=== PATIENT | male | born 1960 | race Caucasian/White ===

== ENCOUNTER 2017-10-28 13:55 | Inpatient (IN) | payer MEDICARE ==
[~2017-10-28] VITALS: Ht 165.1 cm; Wt 56.2 kg
[2017-10-28] MEDS ORDERED: MELA3TAB PO (14:25)
[2017-10-28] MEDS ORDERED: ACET-2154 PO (14:25)
[2017-10-28] MEDS ORDERED: HALO2TAB PO (14:25)
[2017-10-28] MEDS ORDERED: LORA-258 PO (14:25)
[2017-10-28] MEDS ORDERED: VALP250S3 PO (14:25)
[2017-10-28] MEDS ORDERED: MAGN400O6 PO (14:25)
[2017-10-28] MEDS ORDERED: TRAM50TA2 PO (14:25)
[2017-10-28] MEDS ORDERED: OLAN7.5T3 PO (14:25)
[2017-10-28] MEDS ORDERED: BUSP5TAB3 PO (14:25)
[2017-10-28] MEDS ORDERED: MAGNESIUM HYDROXIDE 30 ML LIQUID UDC PO PRN ×2 (15:15→15:30)
[2017-10-28] MEDS ORDERED: TRAMADOL HCL 50 MG TABLET PO PRN (15:15)
[2017-10-28] MEDS ORDERED: LORAZEPAM 0.5 MG TABLET PO PRN (15:15)
--- NOTE | 2017-10-28 15:17 | NUR ---
PT IS IN ROOM #2B. DR NELSON EVALUATED THE PT.
[2017-10-28 15:24] LABS: BASOPHILS % (AUTO) 0.8 % (0.0-2.0); EOSINOPHILS # (AUTO) 0.2 K/uL (0.0-0.7); HEMATOCRIT 39.6 % (36.7-47.1); HEMOGLOBIN 13.2 g/dL (12.5-16.3); LYMPHOCYTES # (AUTO) 1.4 K/uL (20.0-40.0); LYMPHOCYTES % (AUTO) 27.3 % (20.5-51.5); MEAN CORPUSCULAR HEMOGLOBIN 29.8 uug (23.8-33.4); MEAN CORPUSCULAR HGB CONC 33 g/dL (32.5-36.3); MEAN CORPUSCULAR VOLUME 89.6 fL (73.0-96.2); MONOCYTES # (AUTO) 0.4 K/uL (2.0-10.0); MONOCYTES % (AUTO) 8.6 % (0.0-11.0); NEUTROPHILS # (AUTO) 3.1 K/uL (1.8-8.9); NEUTROPHILS % (AUTO) 60.3 % (38.5-71.5); PLATELET COUNT (AUTO) 151 K/uL (152-348); RED BLOOD CELL COUNT(AUTO) 4.42 MIL/uL (4.06-5.63); WHITE BLOOD COUNT (AUTO) 5.1 K/uL (3.6-10.2)
[2017-10-28] MEDS ORDERED: Z GUARD REMEDY PASTE 57 GM TUBE TOP PRN (15:30)
[2017-10-28] MEDS ORDERED: ONDANSETRON 4 MG/2 ML VIAL IV PRN (15:30)
[2017-10-28] MEDS ORDERED: ACETAMINOPHEN 325 MG TABLET PO PRN (15:30)
[2017-10-28 15:43] LABS: CREATININE 0.9 mg/dL (0.6-1.3); POTASSIUM 4.7 mmol/L (3.5-5.1)
[2017-10-28 15:47] LABS: BILIRUBIN,DIRECT 0.1 mg/dL (0.0-0.2); BILIRUBIN,TOTAL 0.2 mg/dL (0.2-1.0); TOTAL PROTEIN, SERUM 6.4 g/dL (6.4-8.2)
[2017-10-28 16:11] LABS: THYROID STIMULATING HORMONE 0.477 mIU/mL (0.358-3.740)
--- NOTE | 2017-10-28 16:44 | NUR ---
PT WAS TRANSFERED TO ROOM #218. REPORT WAS GIVEN TO RN M/S.
[2017-10-28] MEDS ORDERED: VALPROATE SODIUM PO SCH (17:00)
--- NOTE | 2017-10-28 17:00 | NUR ---
PATIENT ARRIVED FROM ER VIA GURNEY. PT IS ALERT, CONFUSED, IN NO DISTRESS. DX AMS UNDER THE CARE OF DR. MCCURDY. ADMISSION PROCESS AND CARE PLAN INITIATED. BELONGING LIST DONE. MD NOTIFIED OF NEW ADMISSION ORDERS. SAFETY MEASURES IN PLACE.
[2017-10-28 17:13] VITALS: BP 106/53
[2017-10-28] MEDS: busPIRone 5 MG TABLET PO SCH (17:50)
--- NOTE | 2017-10-28 18:00 | NUR ---
PT TRYING TO GET OUT OF BED. MD AND ELECTRONICS ENGINEER NOTIFIED FOR 1:1 SITTER
[2017-10-28] MEDS: IV NS 1000 ML 1,000 ML IV PRN (18:34)
[2017-10-28 19:00] VITALS: BP 108/58
--- NOTE | 2017-10-28 19:10 | NUR ---
RECEIVED PT AWAKE ON BED, PLEASANTLY CONFUSED, WITH 1:1 SITTER AT BEDSIDE, NO SIGNS OF RESPIRATORY DISTRESS NOTED. IV SITE ON RFA, PATENT AND INTACT. SAFETY MEASURES INITIATED, CALL [facility] WITHIN REACH.
[2017-10-28] MEDS: MELATONIN 3 MG TABLET PO SCH (20:52)
[2017-10-28] MEDS: DIVALPROEX 250 MG TABLET.DR PO SCH (20:52)
[2017-10-29 04:00] VITALS: BP 114/70
[2017-10-29 06:19] LABS: BASOPHILS % (AUTO) 0.6 % (0.0-2.0); EOSINOPHILS # (AUTO) 0.1 K/uL (0.0-0.7); EOSINOPHILS % (AUTO) 2.8 % (0.0-7.0); HEMATOCRIT 39.2 % (36.7-47.1); HEMOGLOBIN 13.2 g/dL (12.5-16.3); LYMPHOCYTES # (AUTO) 1.2 K/uL (20.0-40.0); LYMPHOCYTES % (AUTO) 23.9 % (20.5-51.5); MEAN CORPUSCULAR HEMOGLOBIN 29.8 uug (23.8-33.4); MEAN CORPUSCULAR HGB CONC 34 g/dL (32.5-36.3); MEAN CORPUSCULAR VOLUME 88.2 fL (73.0-96.2); MONOCYTES # (AUTO) 0.4 K/uL (2.0-10.0); MONOCYTES % (AUTO) 8.1 % (0.0-11.0); NEUTROPHILS # (AUTO) 3.3 K/uL (1.8-8.9); NEUTROPHILS % (AUTO) 64.6 % (38.5-71.5); PLATELET COUNT (AUTO) 153 K/uL (152-348); RED BLOOD CELL COUNT(AUTO) 4.44 MIL/uL (4.06-5.63); WHITE BLOOD COUNT (AUTO) 5.1 K/uL (3.6-10.2)
[2017-10-29 06:44] LABS: CREATININE 0.7 mg/dL (0.6-1.3); MAGNESIUM 2.2 mg/dL (1.8-2.4); PHOSPHOROUS 3.3 mg/dL (2.5-4.9); POTASSIUM 4.6 mmol/L (3.5-5.1)
--- NOTE | 2017-10-29 06:47 | NUR ---
PT RESTING COMFORTABLY, REMAINED ON BED THROUGHOUT THE SHIFT, WITH 1:1 SITTER AT BEDSIDE. PT NOT IN DISTRESS. NO EPISODE OF SEIZURES NOTED. IV SITE ON R UPPER ARM, PATENT AND INTACT. WOUND CARE AND PERICARE PROVIDED. SAFE ENVIRONMENT MAINTAINED AT ALL TIMES, CALL [facility] WITHIN REACH.
[2017-10-29] MEDS: IV NS 1000 ML 1,000 ML IV PRN ×2 (06:56→23:52)
[2017-10-29 08:00] VITALS: BP 110/64
[2017-10-29] MEDS: busPIRone 5 MG TABLET PO SCH (08:02)
[2017-10-29] MEDS: DIVALPROEX 250 MG TABLET.DR PO SCH ×2 (08:21→20:08)
[2017-10-29] MEDS ORDERED: OLANZAPINE 2.5 MG TABLET PO SCH (09:00)
[2017-10-29] MEDS ORDERED: HALOPERIDOL 2 MG TABLET PO SCH (09:00)
[2017-10-29] MEDS ORDERED: OLANZAPINE 7.5 MG PO SCH (09:00)
--- NOTE | 2017-10-29 15:55 | NUR ---
DR MCCURDY NOTIFIED REGARDING PT CT SCAN REPORT
[2017-10-29 16:08] VITALS: BP 100/68
[2017-10-29 16:17] LABS: *BILIRUBIN,URIN NEGATIVE (NEGATIVE); *BLOOD, URINE Trace-intact (NEGATIVE); *CLARITY,URINE CLEAR (CLEAR); *COLOR,URINE YELLOW (YELLOW); *KETONES,URINE TRACE (NEGATIVE); *PROTEIN,URINE NEGATIVE (NEGATIVE); *UROBILINOGEN,URINE 0.2 E.U./dl (NORMAL); LEUKOCYTE ESTERASE ,URINE NEGATIVE (NEGATIVE); NITRITE, URINE NEGATIVE (NEGATIVE); PH,URINE 7.5 (5.0-8.0); UGLUCOSE NEGATIVE (NEGATIVE)
[2017-10-29 16:21] LABS: VALPROIC ACID 71 ug/mL (50-100)
[2017-10-29 16:28] LABS: BACTERIA,URINE NONE SEEN /HPF (NONE SEEN); RBC,URINE 0-3 /HPF (0-3); SQUAMOUS EPITHELIAL CELL,UR NONE SEEN /HPF (NONE SEEN); WBC,URINE 0-3 /HPF (0-3)
--- NOTE | 2017-10-29 19:20 | NUR ---
Received pt lying in bed. having EEG done. AAOx1 only. 1:1 sitter on site. IV site on right UA intact and patent. IVF infusing. Safety measure and seizure precaution initiated.
[2017-10-29] MEDS: MELATONIN 3 MG TABLET PO SCH (20:08)
[2017-10-29 20:33] VITALS: BP 112/72
[2017-10-30 04:30] VITALS: BP 106/74
--- NOTE | 2017-10-30 06:17 | NUR ---
AAOx1 only. 1:1 sitter on bedside. IV site on right UA intact and patent. IVF infusing. No aggressive behavior noted. Safety measure and seizure precaution maintained.
[2017-10-30] MEDS: DIVALPROEX 250 MG TABLET.DR PO SCH ×2 (08:06→20:24)
--- NOTE | 2017-10-30 08:45 | NUR ---
pt went for mri via ambulances in stable condition with the sitter
[2017-10-30] MEDS ORDERED: HALOPERIDOL 1 MG TABLET PO SCH (09:00)
--- NOTE | 2017-10-30 10:19 | NUR ---
pt is back from mri via ambulances in stable condition
--- NOTE | 2017-10-30 11:00 | NUR ---
dr bazan and neurologist notified regarding unable to do mri pt was moving and unable to lay flat
[2017-10-30 11:56] VITALS: BP 100/67
[2017-10-30 15:59] VITALS: BP 109/73
[2017-10-30] MEDS: IV NS 1000 ML 1,000 ML IV PRN (15:59)
--- NOTE | 2017-10-30 19:10 | NUR ---
Received patient lying in bed. AOx1 only, mainly confused. 1:1 sitter on bedside. No unsafe behavior noted at this time. IV site on right UA intact and patent. IVF infusing. Safety measure and seizure precaution initiated.
[2017-10-30 20:02] VITALS: BP 103/77
[2017-10-30] MEDS: MELATONIN 3 MG TABLET PO SCH (20:24)
[2017-10-31 04:49] VITALS: BP 129/76
[2017-10-31] MEDS: IV NS 1000 ML 1,000 ML IV PRN (05:14)
--- NOTE | 2017-10-31 06:20 | NUR ---
AAOx1 only. 1:1 sitter on bedside. IV site on right UA intact and patent. IVF infusing. Slept well last night. No unsafe behavior noted. Safety measure and seizure precaution maintained.
--- NOTE | 2017-10-31 09:00 | NUR ---
PATIENT IS ALERT, IN NO DISTRESS, NO BEHAVIORAL ISSUES NOTED. PATIENT STILL HAVING HALLUCINATIONS. Addendum: 10/31/17 at 1527 by JOHN CEDILLO RN 1:1 RICARDO BUTTS FOR SAFETY
[2017-10-31] MEDS: DIVALPROEX 250 MG TABLET.DR PO SCH (09:46)
[2017-10-31 11:00] VITALS: BP 110/62
--- NOTE | 2017-10-31 13:00 | NUR ---
PATIENT DISCHARGED TO [facility]. UNABLE TO PROVIDE PT TEACHINGS/INSTRUCTIONS/EDUCATION. IV ACCESS REMOVED.
--- NOTE | 2017-10-31 15:36 | NUR ---
REPORT GIVEN TO SHRADDHA HUBER FROM [facility]. [facility] UNABLE TO PROVIDE VACCINATION RECORDS OF PATIENT.
--- NOTE | 2017-10-31 16:00 | NUR ---
PT TRANSPORTED TO [facility] VIA AMBULANCE. PT IS ALERT, IN NO DISTRESS.
== END 2017-10-31 15:55 | DRG 640 ==
LOC: ER 13:55 → MED 16:40
PROVIDERS: ADMIT Internal Medicine; ATTEND Internal Medicine
DX: E86.0 Dehydration (principal); E43 Unspecified severe protein-calorie malnutrition; G92 Toxic encephalopathy; G91.9 Hydrocephalus, unspecified; G40.909 Epilepsy, unspecified, not intractable, without status epilepticus; R62.7 Adult failure to thrive; Z68.20 Body mass index [BMI] 20.0-20.9, adult; L98.9 Disorder of the skin and subcutaneous tissue, unspecified; L90.5 Scar conditions and fibrosis of skin; R30.0 Dysuria; F03.90 Unspecified dementia, unspecified severity, without behavioral disturbance, psychotic disturbance, mood disturbance, and anxiety; F20.9 Schizophrenia, unspecified; Z86.73 Personal history of transient ischemic attack (TIA), and cerebral infarction without residual deficits; Z87.820 Personal history of traumatic brain injury; M62.50 Muscle wasting and atrophy, not elsewhere classified, unspecified site; Z91.19 Patient's noncompliance with other medical treatment and regimen; R44.1 Visual hallucinations
CPT/HCPCS: 36415; 70030-TC; 70450; 71045; 80164; 83605; 83735; 84100; 84443; 85025; 93005; A4663; J3490; J7030